=== PATIENT | male | born 1995 | race Caucasian/White ===

== ENCOUNTER 2017-09-27 19:40 | Emergency (ER) | payer BC, MEDICARE ==
[~2017-09-27] VITALS: Ht 180.3 cm; Wt 86.2 kg
[2017-09-27 19:44] VITALS: BP 135/81
--- NOTE | 2017-09-27 19:49 | NUR ---
to lobby, a/w bed, amb, stable, ermd noted
--- NOTE | 2017-09-27 19:51 | NUR ---
PATIENT AMBULATED TO ER CHAIR E.
--- NOTE | 2017-09-27 19:52 | NUR ---
22/M CAME IN W C/O SORETHROAT AND DYSPAHGIA X 2 DAYS. DENIES SOB/COUGH, DENIES FEVER/CHILLS, DENIES N/V/D. ALL LUNG SOUNDS CBTA, 16RR EVEN AND UNLABORED. DENIES PMH/RX/OTC
[2017-09-27] MEDS ORDERED: IBUPROFEN 800 MG TAB PO ONE (20:15)
[2017-09-27] MEDS ORDERED: AMOXICILLIN 500 MG CAP PO ONE (20:15)
[2017-09-27] MEDS ORDERED: LIDOCAINE VISCOUS 2% 20 ML UDC PO ONE (20:15)
[2017-09-27 20:45] VITALS: BP 118/76
--- NOTE | 2017-09-27 20:45 | NUR ---
Patient discharged with v/s stable. Written and verbal after care instructions given and explained. Patient alert, oriented and verbalized understanding of instructions. Ambulatory with steady gait. All questions addressed prior to discharge. ID band removed. Patient advised to follow up with PMD. Rx of AMOXICILLIN, IBUPROFEN AND LIDOCAINE given. Patient educated on indication of medication including possible reaction and side effects. Opportunity to ask questions provided and answered.
== END 2017-09-27 20:45 | disposition home or self-care (01) ==
LOC: MED 19:40
DX: J03.90 Acute tonsillitis, unspecified (principal)
CPT/HCPCS: 87081; 99284

== ENCOUNTER 2019-01-28 08:56 | Emergency (ER) | payer BC, MEDICARE ==
[~2019-01-28] VITALS: Ht 177.8 cm; Wt 86.2 kg
[2019-01-28 08:58] VITALS: BP 151/84
--- NOTE | 2019-01-28 09:02 | NUR ---
PATIENT AMBULATED TO BED 3.
--- NOTE | 2019-01-28 09:14 | NUR ---
THROAT PAIN SINCE FRIDAY; STATES IT'S THE 4TH THROAT INFECTION THIS YEAR; STATES HE HAD FEVER FRIDAY THROUGH FRIDAY. DENIES N/V/D; SKIN IS PINK/WARM/DRY; AAOX4 WITH EVEN AND STEADY GAIT; LUNGS CLEAR BL; PATIENT STATES PAIN OF 8/10 AT THIS TIME; VSS; PATIENT POSITIONED FOR COMFORT; HOB ELEVATED; BEDRAILS UP X1; BED DOWN. ER MD MADE AWARE OF PT STATUS.
[2019-01-28 09:26] VITALS: BP 135/75
--- NOTE | 2019-01-28 09:26 | NUR ---
Patient discharged with v/s stable. Written and verbal after care instructions given and explained. Patient alert, oriented and verbalized understanding of instructions. Ambulatory with steady gait. All questions addressed prior to discharge. ID band removed. Patient advised to follow up with PMD. Rx of Prednisone and Motrin given. Patient educated on indication of medication including possible reaction and side effects. Opportunity to ask questions provided and answered.
== END 2019-01-28 09:26 | disposition home or self-care (01) ==
LOC: MED 08:56
DX: J02.9 Acute pharyngitis, unspecified (principal)
CPT/HCPCS: 99283